=== PATIENT | female | born 1955 | race Caucasian/White ===

== ENCOUNTER → 2021-04-01 | Outpatient (CLI) | payer MEDICARE ==
--- NOTE | 2021-04-03 07:22 | REP ---
INDICATION: VENOUS INSUFFICIENCY CHRONIC PERIPHERAL / STENOSIS COMPARISON: None. TECHNIQUE: Jacques scale and color Doppler evaluation using linear high frequency transducer Findings: FINDINGS: Two-dimensional jacques scale and color images demonstrate normal arterial lumen with laminar flow and no appreciable narrowing. Color Doppler interrogation demonstrates normal arterial wave patterns and velocities with no significant spectral broadening. Normal flow direction is appreciated in the bilateral vertebral arteries. ICA peak systolic velocity: Right 77.2 cm/s; Left 69.8 cm/s ICA diastolic velocity: Right 26 point cm/s; Left 26.4 cm/s ECA peak systolic velocity: Right 131.7 cm/s; Left 55.8 cm/s CCA peak systolic velocity: Right 133.6 cm/s; Left 93.5 cm/s ICA/CCA ratio: Right 0.58 cm/s; Left 0.75 cm/s Incidental 3.1 x 2.1 x 2.3 cm left thyroid nodule. IMPRESSION: No hemodynamically significant areas of narrowing or stenosis appreciated. Based on set standards narrowing falls within the less than 50% range. <Electronically signed by Jayden Jones > 04/03/21 0719
--- NOTE | 2021-04-03 07:25 | REP ---
INDICATION: VENOUS INSUFFICIENCY CHRONIC PERIPHERAL / STENOSIS COMPARISON: None. TECHNIQUE: Jacques scale and color Doppler evaluation using linear high frequency transducer including reflux evaluation. FINDINGS: Ultrasound examination of the right lower extremity deep venous structures from the common femoral vein through the calf/ankle to include the peroneal, and tibial veins demonstrates normal compressibility flow and wave patterns in response to respiration and augmentation. There is no evidence for deep venous thrombosis. Contralateral common femoral vein is patent. 4.9 x 2.5 x 2.8 cm complex Chávez's cyst in the right popliteal fossa. Evaluation of the right lower extremity demonstrates reflux through the deep system as well as the superficial system. Proximal greater saphenous vein measures 12 mm diameter with reflux duration 6.8 seconds; mid greater saphenous vein measures 8.2 mm diameter with reflux duration 3.3 seconds; distal greater saphenous vein measures 8.1 mm diameter with reflux duration 5.4 seconds. Lesser saphenous vein measures 8.3 mm diameter with reflux duration 5.7 seconds. Collateral varicosities are identified extending from the greater saphenous vein towards the proximal calf. IMPRESSION: No evidence for deep venous thrombosis. Right-sided Chávez's cyst. Mild right lower extremity reflux. <Electronically signed by Jayden Jones > 04/03/21 0715
== END ==
LOC: M RAD 12:53
PROVIDERS: ATTEND Surgery Vascular Surgery
DX: I87.2 Venous insufficiency (chronic) (peripheral) (principal); I65.23 Occlusion and stenosis of bilateral carotid arteries; R09.89 Other specified symptoms and signs involving the circulatory and respiratory systems

== ENCOUNTER → 2021-07-15 | Outpatient (CLI) | payer MEDICARE ==
[~2021-07-15] MED LIST: ENAL20TA11; ESTR0.1C5; FLUT11IN; LIDOCAINE 1% MDV 20ML VIAL As Ordered ONE; LORA-674; PANT20TA6; PRAV40TA2; SODIUM BICARBONATE 8.4% INJ 50MEQ 50 ML VIAL As Ordered ONE
[2021-07-15 13:46] VITALS: BP 198/102
== END ==
LOC: M IRPRO 12:13
PROVIDERS: ATTEND Otolaryngology
DX: D44.0 Neoplasm of uncertain behavior of thyroid gland (principal)

== ENCOUNTER → 2021-10-24 | Outpatient (REF) | payer MEDICARE ==
[~2021-10-24] MED LIST changes: -LIDOCAINE 1% MDV 20ML VIAL As Ordered ONE; -SODIUM BICARBONATE 8.4% INJ 50MEQ 50 ML VIAL As Ordered ONE
[2021-10-24 17:27] LABS: ALBUMIN 3.9 GM/DL (3.2-5.2); ALT/SGPT 20 U/L (12-78); BILIRUBIN,DIRECT 0.1 MG/DL (0.0-0.2); BILIRUBIN,TOTAL 0.3 MG/DL (0.2-1.0); BLOOD UREA NITROGEN 25 MG/DL (7-18); CALCIUM LEVEL 9.3 MG/DL (8.8-10.2); CARBON DIOXIDE LEVEL 27 MEQ/L (21-32); CHLORIDE LEVEL 108 MEQ/L (98-107); CREATININE FOR GFR 0.74 MG/DL (0.55-1.30); GLOMERULAR FILTRATION RATE > 60.0 (>45); GLUCOSE, FASTING 88 MG/DL (70-100); POTASSIUM SERUM 4.6 MEQ/L (3.5-5.1); SODIUM LEVEL 140 MEQ/L (136-145); TOTAL PROTEIN 6.7 GM/DL (6.4-8.2)
== END ==
LOC: M SFHCRHEU 15:05
PROVIDERS: ATTEND Internal Medicine
DX: Z79.1 Long term (current) use of non-steroidal anti-inflammatories (NSAID) (principal)

== ENCOUNTER → 2022-08-02 | Outpatient (CLI) | payer MEDICARE | LOC: M RAD 11:59 | PROVIDERS: ATTEND Otolaryngology | DX: D44.0 Neoplasm of uncertain behavior of thyroid gland (principal) ==

== ENCOUNTER → 2024-07-17 | Outpatient (REF) | payer MEDICARE ==
[~2024-07-17] MED LIST changes: +ENAL1TAB52; -ENAL20TA11; -FLUT11IN; +FLUT12AE6; +LORA-1041; -LORA-674
[2024-07-17 18:31] LABS: PERCENT SATURATION 21.8 % (13.2-45.0)
== END ==
LOC: M LAB REF 17:07
PROVIDERS: ATTEND Internal Medicine Nephrology
DX: D50.9 Iron deficiency anemia, unspecified (principal)

== ENCOUNTER → 2024-09-03 | Outpatient (CLI) | payer MEDICARE | LOC: M RAD 14:55 | PROVIDERS: ATTEND Otolaryngology | DX: D44.0 Neoplasm of uncertain behavior of thyroid gland (principal) ==